=== PATIENT | female | born 1945 | race Caucasian/White ===

== ENCOUNTER 2022-06-06 04:23 | Day surgery (SDC) | payer OTHER ==
[2022-06-01 10:45] VITALS: BMI 29.2
[2022-06-06 11:53] VITALS: TEMP 98.2
[2022-06-06 13:31] VITALS: BP 107/76; PULSE 65; RESP 14
== END 2022-06-06 12:55 | disposition home or self-care (01) ==
LOC: JASU-ENDO 04:23
PROVIDERS: ATTEND Internal Medicine Gastroenterology
PROC: 0DBL8ZX Excision of Transverse Colon, Via Natural or Artificial Opening Endoscopic, Diagnostic (ICD-10-PCS; principal; 2022-06-06 11:00)
DX: D12.3 Benign neoplasm of transverse colon (principal); K64.8 Other hemorrhoids; K57.30 Diverticulosis of large intestine without perforation or abscess without bleeding
CPT/HCPCS: 88305-TC